=== PATIENT | male | born 1970 | race Caucasian/White ===

== ENCOUNTER 2016-08-04 12:08 | Emergency (ER) | payer MEDICAID, OTHER ==
[2016-08-04 12:16] VITALS: BP 0/0
[2016-08-04] MEDS ORDERED: CALCIUM CHLOR(10%) 100MG/ML 10ML SYRINGE IV ONE (13:02)
[2016-08-04] MEDS ORDERED: SODIUM BICARBONATE 8.4% INJ 50ML SYRINGE IV ONE (13:02)
[2016-08-04] MEDS ORDERED: EPINEPHrine HCL 1 MG/10 ML SYRG IV ONE (13:02)
== END 2016-08-04 16:04 | disposition expired ==
LOC: ER 12:08
DX: I46.9 Cardiac arrest, cause unspecified (principal); I50.9 Heart failure, unspecified; J44.9 Chronic obstructive pulmonary disease, unspecified
CPT/HCPCS: 31500; 92950; 99291; J0171